=== PATIENT | female | born 1985 | race Caucasian/White ===

== ENCOUNTER 2016-05-09 10:50 | Observation (INO) | payer MEDICAID | END 2016-05-09 13:15 | disposition home or self-care (01) | DRG 566 | LOC: LDRP 10:50 | PROVIDERS: ADMIT Obstetrics & Gynecology; ATTEND Obstetrics & Gynecology | DX: O48.0 Post-term pregnancy (principal); Z87.891 Personal history of nicotine dependence; Z3A.40 40 weeks gestation of pregnancy | CPT/HCPCS: 59025; 76818; 81002; G0378 ==

== ENCOUNTER 2016-05-11 11:45 | Inpatient (IN) | payer MEDICAID ==
[~2016-05-11] VITALS: Ht 160 cm; Wt 86.2 kg
[2016-05-11] VITALS (9 sets, daily range): BP systolic 111–149; BP diastolic 62–93
[~2016-05-11 11:45] MED LIST: PHENYLEPHRINE HCL 10 MG/ML VL IV ONE
[2016-05-11] MEDS ORDERED: SODIUM CITR/CITRIC ACID ORAL SOLN 30 ML PO SCH (16:15)
[2016-05-11] MEDS ORDERED: TETRACAINE 1% INJ 2 ML VIAL IJ ONE (16:22)
[2016-05-11] MEDS ORDERED: fentaNYL CITRATE 100 MCG/2 ML VL ONE (16:24)
[2016-05-11] MEDS ORDERED: MIDAZOLAM HCL 1MG/1ML-2 ML VIAL ONE (16:24)
[2016-05-11 16:27] LABS: Basophils # (auto) 0 uL; Basophils % (auto) 0.4 % (0.0-2.0); Eosinophils # (auto) 0.2 uL; Eosinophils % (auto) 1.8 % (0.0-7.0); Hemoglobin 11.5 g/dL (12.2-16.2); Lymphocytes # (auto) 0.8 uL; Lymphocytes % (auto) 8.2 % (10.0-50.0); Mean Corpuscular Hemoglobin 29.3 pg (28.0-32.0); Mean Corpuscular Hgb Conc. 32.7 g/dL (32.0-36.0); Mean Corpuscular Volume 89.4 fL (80.0-100.0); Mean Platelet Volume 8.7 fL (7.4-10.4); Monocytes # (auto) 0.7 uL; Neutrophils # (auto) 7.9 uL; Neutrophils % (auto) 82.6 % (37.0-80.0); Platelet Count (auto) 251 10^3/uL (140-450); Red Cell Distribution Width 15.3 % (11.6-16.0); White Blood Cell 9.5 10^3/uL (4.4-10.8)
[2016-05-11 16:36] LABS: Urine Bilirubin Negative (Negative); Urine Blood Negative /uL (Negative); Urine Color Yellow (Yellow); Urine Glucose Normal (Normal); Urine Ketone Negative (Negative); Urine Nitrite Negative (Negative); Urine RBC <1 /hpf (0 - 4); Urine Squamous Epithelial Cell FEW /hpf (<5); Urine Urobilinogen Normal (Negative); Urine pH 6.5 (5.0-8.0)
[2016-05-11 16:41] LABS: INR 0.94 (0.9-1.15); Partial Thromboplastin Time 27.9 sec (22.64-33.71); Prothrombin Time 9.7 sec (9.37-12.3)
[2016-05-11] MEDS ORDERED: HYDROmorphone HCL 2 MG/ML VL IV PRN (16:45)
[2016-05-11] MEDS ORDERED: ePHEDrine SULFATE 50 MG/ML AMP IV PRN (16:45)
[2016-05-11] MEDS ORDERED: MORPHINE SULF INJ 2 MG/ML SYRINGE 1ML IV PRN (16:45)
[2016-05-11] MEDS ORDERED: ONDANSETRON HCL 4 MG/2 ML VIAL IV ONE (16:45)
[2016-05-11] MEDS ORDERED: LABETALOL HCL 5 MG/ML 4ML SYRINGE IV PRN (16:45)
[2016-05-11] MEDS ORDERED: MIDAZOLAM HCL 1MG/1ML-2 ML VIAL IV PRN (16:45)
[2016-05-11] MEDS ORDERED: KETOROLAC TROMETH 30 MG/ML 1ML VIAL IV ONE (16:45)
[2016-05-11 16:53] LABS: Albumin 2.7 g/dL (3.4-5.0); BUN/Creatinine Ratio 11.5; Bilirubin, Total 0.4 mg/dL (0.2-1.0); Calcium 8.8 mg/dL (8.5-10.1); Potassium 3.8 mmol/L (3.5-5.1); Total Protein 6.7 g/dL (6.4-8.2); Uric Acid 2.7 mg/dL (2.6-6.0)
[2016-05-11] MEDS ORDERED: METOCLOPRAMIDE HCL 5MG/ml INJ 2ml VIAL ONE (16:57)
[2016-05-11] MEDS ORDERED: OXYTOCIN 10 UNIT/ML 10ML VIAL ONE (17:08)
[2016-05-11] MEDS ORDERED: ONDANSETRON HCL 4 MG/2 ML VIAL IV PRN (17:45)
[2016-05-11] MEDS: LACT. RINGERS/OXYTOCIN 20UNITS 1,000 ML IV SCH (19:30)
[2016-05-11] MEDS: KETOROLAC TROMETH 30 MG/ML 1ML VIAL IV PRN (20:33)
[2016-05-11 21:23] LABS: Basophils # (auto) 0 uL; Basophils % (auto) 0.1 % (0.0-2.0); Eosinophils # (auto) 0.1 uL; Hematocrit 31.5 % (36.0-46.0); Hemoglobin 10.3 g/dL (12.2-16.2); Lymphocytes # (auto) 0.8 uL; Lymphocytes % (auto) 7.8 % (10.0-50.0); Mean Corpuscular Hemoglobin 29.4 pg (28.0-32.0); Mean Corpuscular Hgb Conc. 32.8 g/dL (32.0-36.0); Mean Corpuscular Volume 89.5 fL (80.0-100.0); Mean Platelet Volume 8.6 fL (7.4-10.4); Monocytes # (auto) 0.6 uL; Monocytes % (auto) 5.8 % (0.0-12.0); Neutrophils # (auto) 8.5 uL; Neutrophils % (auto) 85.3 % (37.0-80.0); Platelet Count (auto) 236 10^3/uL (140-450); Red Cell Distribution Width 15.4 % (11.6-16.0)
[2016-05-11] MEDS ORDERED: CLINDAMYCIN 900MG IV 50 ML IV ONE (21:48)
[2016-05-11] MEDS ORDERED: ceFAZolin 1GM/50ML D5W 50 ML IV SCH (22:00)
[2016-05-11] MEDS ORDERED: CLINDAMYCIN 900MG IV 50 ML IV SCH (22:00)
[2016-05-11] MEDS: HYDROmorphone HCL 2 MG/ML VL IV PRN (22:06)
[2016-05-11] MEDS: CLINDAMYCIN 900MG IV 50 ML IV SCH (23:00)
[2016-05-12] VITALS (10 sets, daily range): BP systolic 102–127; BP diastolic 59–74
[2016-05-12] MEDS: LACT. RINGERS/OXYTOCIN 20UNITS 1,000 ML IV SCH ×3 (00:25→13:45)
[2016-05-12] MEDS: HYDROmorphone HCL 2 MG/ML VL IV PRN ×2 (01:39→04:47)
[2016-05-12] MEDS ORDERED: LACTATED RINGER'S 1,000 ML IV SCH (06:49)
[2016-05-12] MEDS: KETOROLAC TROMETH 30 MG/ML 1ML VIAL IV PRN (06:52)
[2016-05-12] MEDS ORDERED: HYDROcodone-ACET 5/325MG TAB PO PRN (07:00)
[2016-05-12] MEDS ORDERED: SIMETHICONE 80 MG CHEWABLE TABLET PO PRN (07:00)
[2016-05-12 07:07] LABS: Basophils # (auto) 0 uL; Eosinophils # (auto) 0 uL; Eosinophils % (auto) 0.4 % (0.0-7.0); Hematocrit 29.8 % (36.0-46.0); Lymphocytes # (auto) 0.7 uL; Lymphocytes % (auto) 6.5 % (10.0-50.0); Mean Corpuscular Hemoglobin 29.7 pg (28.0-32.0); Mean Corpuscular Hgb Conc. 33.7 g/dL (32.0-36.0); Mean Corpuscular Volume 88.1 fL (80.0-100.0); Mean Platelet Volume 8.8 fL (7.4-10.4); Monocytes # (auto) 0.7 uL; Monocytes % (auto) 6.8 % (0.0-12.0); Neutrophils # (auto) 9.5 uL; Neutrophils % (auto) 86.3 % (37.0-80.0); Platelet Count (auto) 234 10^3/uL (140-450); Red Cell Distribution Width 15.2 % (11.6-16.0)
[2016-05-12] MEDS: DOCUSATE SOD 100 MG CAP PO SCH ×2 (10:00→21:55)
[2016-05-12] MEDS: CLINDAMYCIN 900MG IV 50 ML IV SCH ×2 (11:18→22:56)
[2016-05-12] MEDS: IBUPROFEN 800 MG TAB PO PRN ×2 (11:24→21:55)
[2016-05-12] MEDS: HYDROcodone-ACET 5/325MG TAB PO PRN ×2 (17:18→22:56)
[2016-05-13 03:09] VITALS: BP 117/77
[2016-05-13 08:00] VITALS: BP 130/75
[2016-05-13] MEDS: HYDROcodone-ACET 5/325MG TAB PO PRN (08:09)
[2016-05-13] MEDS: DOCUSATE SOD 100 MG CAP PO SCH ×2 (10:30→21:40)
[2016-05-13 12:20] VITALS: BP 119/82
[2016-05-13] MEDS ORDERED: PREN-96 PO (15:51)
[2016-05-13 16:15] VITALS: BP 116/71
[2016-05-13] MEDS: IBUPROFEN 800 MG TAB PO PRN (18:04)
[2016-05-13 18:45] VITALS: BP 128/76
[2016-05-13 23:00] VITALS: BP 137/70
[2016-05-14 03:30] VITALS: BP 112/69
[2016-05-14] MEDS: IBUPROFEN 800 MG TAB PO PRN (04:26)
[2016-05-14 08:30] VITALS: BP 115/67
[2016-05-14] MEDS: DOCUSATE SOD 100 MG CAP PO SCH (09:58)
== END 2016-05-14 10:00 | disposition home or self-care (01) | DRG 540 ==
LOC: LDRP 11:45 → OBSVTOIN 13:25 → LDRP 13:34
PROVIDERS: ADMIT Specialist; ATTEND Specialist
PROC: 10907ZC Drainage of Amniotic Fluid, Therapeutic from Products of Conception, Via Natural or Artificial Opening (ICD-10-PCS; 2016-05-11)
PROC: 10D00Z1 Extraction of Products of Conception, Low, Open Approach (ICD-10-PCS; principal; 2016-05-11 16:49)
DX: O48.0 Post-term pregnancy (principal); F32.9 Major depressive disorder, single episode, unspecified; O76 Abnormality in fetal heart rate and rhythm complicating labor and delivery; O99.344 Other mental disorders complicating childbirth; O77.0 Labor and delivery complicated by meconium in amniotic fluid; Z37.0 Single live birth; Z3A.40 40 weeks gestation of pregnancy
CPT/HCPCS: 36415; 51703; 59025; 76818; 80053; 81001; 81002; 84550; 85025; 85049; 85610; 85730; 86850; 86900; 86901; 94760; 94762; 96365; 96366; 96374; G0378; G0434; J0690; J1885; J2250; J2590; J3490; J7060